=== PATIENT | female | born 1965 | race African-American/Black ===

== ENCOUNTER 2024-01-02 08:05 | Outpatient (CLI) | payer OTHER | END 2024-01-02 08:06 | disposition home or self-care (01) | LOC: BICMAMMO 08:05 | PROVIDERS: ATTEND Family Medicine | DX: R92.8 Other abnormal and inconclusive findings on diagnostic imaging of breast (principal); R92.30 Dense breasts, unspecified | CPT/HCPCS: G0279 ==